=== PATIENT | female | born 1935 ===

== ENCOUNTER 2018-01-28 07:59 | Day surgery (SDC) | payer MEDICARE ==
[2018-01-28] MEDS ORDERED: Lactated Ringer's 500 ML IV ONE (08:28)
[2018-01-28] MEDS ORDERED: Etomidate 20 mg/10ml Inj IV ONE (11:31)
[2018-01-28] MEDS ORDERED: Midazolam 2 MG/2 ML VIAL ONE (11:31)
[2018-01-28] MEDS ORDERED: Propofol 10 mg/ml Inj (20 ML) ONE (11:31)
[2018-01-28 12:01] VITALS: TEMP 97
[2018-01-28 12:18] VITALS: BP 149/61; PULSE 62; RESP 21; O2SAT 99
== END 2018-01-28 12:35 | disposition home or self-care (01) ==
LOC: H.ENDO 07:59
PROVIDERS: ATTEND Internal Medicine Gastroenterology
DX: K30 Functional dyspepsia (principal); E78.5 Hyperlipidemia, unspecified; I10 Essential (primary) hypertension; K44.9 Diaphragmatic hernia without obstruction or gangrene; K31.89 Other diseases of stomach and duodenum
CPT/HCPCS: 43239; 88305; J2001; J2250; J2704; J7120